=== PATIENT | male | born 1985 | race Caucasian/White ===

== ENCOUNTER 2019-03-19 22:43 | Emergency (ER) | payer OTHER, SELFPAY ==
[2019-03-19 22:44] VITALS: BP 138/77; PULSE 84; RESP 18; TEMP 36.1; O2SAT 95; BMI 30.7
--- NOTE | 2019-03-19 23:09 | ED.RN ---
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 PT BELIEVES IT IS ONLY IF HE WAS DRIVING A VEHICLE.
--- NOTE | 2019-03-19 23:59 | ED.VIS.UPPEX ---
History of Present Illness Chief Complaint: Bite Informant: Patient Mechanism/Context: Work Related - Bit by dog. Patient is police department secretary. Onset: Today - Just prior to arrival. Context: Sudden Onset Quality of Pain: Aching Location: Right mid forearm Current Severity: Mild Maximum Severity: Moderate Worsened by: Moving Relieved by: Remaining still Associated Symptoms: Negative for: Parasthesia, Weakness, Loss of Funtion Narrative: Patient states that he was attempting to arrest a man who had a pitbull mix with him, the patient was not cooperating, as a result of the patient's/officer put his hand in the door of the home to proceed with the arrest, while the home chief learning officer ordered the dog to get him. As result, he was bit on the right forearm. His last tetanus was between 5 and 10 years ago, he was just in the 3 years ago. He is healthy otherwise. He has no neurologic symptoms or loss of function of his right upper extremity. No other injuries. Patient states that before the dog did this he did not appear ill. According to report from the patient significant other who also lives at the house and co-owns the animal, the animal had had shots and was not ill or recently bit by any raccoons or other wild animals. Tetanus Immunization: 5-10 years Past Medical History - Allergies and Home Meds Allergies/Adverse Reactions: Allergies No Known Allergies Allergy (Verified 03/19/19 22:44) Primary Care Physician: Ricardo Weinberg MD [Primary Care Provider] - Past Medical History: None Drugs: None Review of Systems Musculoskeletal: Reports: Extremity Pain Skin: Reports: Abrasions, Wounds Neurological: Denies: Weakness, Parasthesia, Numbness Physical Exam Vital Signs/Narrative: Vital Signs Temp Pulse Resp BP Pulse Ox 03/19/19 22:44 96.9 F L 84 18 138/77 H 95 General: Well nourished, Well developed Head: Normocephalic, Atraumatic Extremeties: Mild tenderness at the area of the abrasion/contusion. Range of motion throughout the right upper extremity, neurovascularly intact distally. All tendon function is intact. Skin: Trauma - 3 linear abrasions on the ulnar aspect of the mid right forearm, with one superficial puncture along 1 of the abrasions. It does not appear to be full-thickness through the skin. There is no active bleeding. Neurological: Alert, Oriented x3, Cranial nerves II-XII grossly intact, Normal Strength, Normal Sensation, Normal Gait Psychological: Normal affect, Normal Mood Diagnostic/Tx/Re-eval - Medical Decision Making This is a very superficial puncture and I do not think he needs antibiotics. His wound was cleansed and dressed with topical antibiotic only which I think is sufficient. We discussed rabies vaccination. I do not think he requires it at this time and that the CDC recommendations would support that, based on the information known. I would advise that someone from the department recheck the dogs status in 10 days, the dog is someone's pet and would be very unlikely to have rabies. The dog is able to be observed and rechecked. The patient is comfortable with avoiding rabies vaccination at this time, however if the dog's status should change, that could be reevaluated. Okay to return to work. ED Disposition - Plan for ED Patient: Disposition: Home or Assisted Living Diagnosis: Dog bite of right forearm without complication Instructions: Dog Bite Referrals: Ricardo Weinberg MD [Primary Care Provider] - [facility] [GROUP OF PHYSICIANS] - As Needed Additional Instructions: Somewhat should check on the status of the dog in 10 days to ensure the dog is not ill or acting unusual. Also would be helpful to verify the dog has had rabies shots.
== END 2019-03-20 00:22 | disposition home or self-care (01) ==
LOC: ED 03-20 00:17
PROVIDERS: Emergency Provider Emergency Medicine; Family Provider Family Medicine; PCP Family Medicine
DX: S51.851A Open bite of right forearm, initial encounter (principal); W54.0XXA Bitten by dog, initial encounter; Y93.89 Activity, other specified; Y92.009 Unspecified place in unspecified non-institutional (private) residence as the place of occurrence of the external cause; Y99.0 Civilian activity done for income or pay
CPT/HCPCS: 99283

== ENCOUNTER 2019-11-08 16:41 | Emergency (ER) | payer OTHER, SELFPAY ==
[2019-11-08 16:42] VITALS: BP 129/73; PULSE 61; RESP 15; TEMP 37; O2SAT 99; BMI 29.9
[2019-11-08 17:28] VITALS: RESP 16
--- NOTE | 2019-11-08 17:50 | ED.VISSUMM ---
- ER Visit Summary Date of Service: 11/08/19 Chief Complaint: Dog bite, left thumb History of Present Illness: The patient is a 34 M who sustained a dog bite to the left thumb. It was the neighbors dog he was petting with a bit his left thumb. The patient and the dog are up-to-date on immunizations. He is having some swelling of the thumb. Denies any other injuries. Physical Examination: Vital signs are reviewed. Left hand exam reveals a 2 cm laceration on the pad of the left thumb. There is also a 0.5 cm laceration on the dorsal part of the left thumb. He has good capillary refill. Sensation is intact distally to the injuries. Good range of motion. Test Results: None Emergency Department Course and Treatment: The patient had a laceration repair. 1 cc lidocaine was used to anesthetize the area locally. 1, 4-0 nylon suture was placed on the dorsal part of the thumb. 3, 4-0 nylon sutures were placed on the pad of the left thumb to approximate each of these wounds. They were not closed tightly to allow any infection to drain if present. I will place the patient on Augmentin at home. He will keep the area clean and dry and will follow up with his PCP. Treatment Plan: [] Disposition: Discharge Impression: Dog bite, left thumb Lacerations, 2 cm and 0.5 cm left thumb Laceration repaired by ED physician This note was generated with Medig[employer] dictation software. It may contain incorrect words, spelling, and punctuation that were not noted in review of the chart prior to signing ED Disposition - Plan for ED Patient: Disposition: Home or Assisted Living Instructions: ED BITE Dog Prescriptions: Amox/Clavulanate Tablet [Augmentin Tablet] 875 mg PO Q12H #20 tab Transmission Status: Pending to [facility]/pharmacy #[id number] Referrals: Ricardo Weinberg MD [Primary Care Provider] -
[2019-11-08 18:04] VITALS: RESP 14
== END 2019-11-08 18:04 | disposition home or self-care (01) ==
PROVIDERS: Emergency Provider Emergency Medicine; PCP Family Medicine
DX: S61.052A Open bite of left thumb without damage to nail, initial encounter (principal); S61.012A Laceration without foreign body of left thumb without damage to nail, initial encounter; W54.0XXA Bitten by dog, initial encounter
CPT/HCPCS: 12001; 99283

== ENCOUNTER 2022-02-19 16:34 | Emergency (ER) | payer OTHER, SELFPAY ==
[2022-02-19 16:34] VITALS: BP 146/69; PULSE 67; RESP 16; TEMP 36.6; O2SAT 100; BMI 31.5
--- NOTE | 2022-02-19 17:27 | EX.ED.UPPERE ---
HPI History of Present Illness HPI Narrative: Left thumb needlestick Chief Complaint: Occup Expose Informant: patient Occured/Mechanism Mechanism/Context: Yes injury Onset/Context/Timing Onset: Today Current Severity: Mild Maximum Severity: Mild Narrative Narrative: 36-year-old healthy male [id number]. Works as a [employer] officer. He picked up a dirty needle from the street he did not realize it had been pushed through the cap and puncture wound to his left palmar aspect of his distal thumb. Tetanus status is up-to-date. He denies any other injuries. This is Worker's Comp. Tetanus Immunization: <5 years Prior similar symptoms: No Recent Illness/Hospitalization: No PFSH PFSH Medical History no medical history no medical history Home Medications amoxicillin 875 mg-potassium clavulanate 125 mg tablet 875 mg PO Q12H #20 tabs 11/08/19 [Rx Last Taken Unknown] multivitamin with minerals 1 ea PO DAILY 11/08/19 [History Last Taken 11/08/19] cephalexin 500 mg capsule 500 mg PO TID 5 days #15 caps 02/19/22 [Rx Last Taken Unknown] Allergy/AdvReac Type Severity Reaction Status Date / Time No Known Allergies Allergy Verified 02/19/22 16:38 Social History Smoking Status: Never smoker ROS ROS ED ROS Narrative No recent illness. Review of Systems ROS Unobtainable: Denies due to encephalopathy Constitutional Constitutional ED: Denies chills Eyes Eyes: Denies blurry vision ENT ENT ED: Denies ear pain Cardiovascular Cardiovascular: Denies chest pain Respiratory/Chest Respiratory/Chest: Denies cough Gastrointestinal Gastrointestinal: Denies abdominal pain Genitourinary Genitourinary ED: Denies dysuria Musculoskeletal Musculoskeletal: Denies back pain Integumentary Denies abscess Neurologic Neurologic: Denies headache(s) Psychiatric Psychiatric: Denies anxiety Endocrine Endocrinology: Denies cold intolerance Hematologic/Lymphatic Hematologic/Lymphatic: Denies easy bleeding Allergic/Immunologic Allergic/Immunologic ED: Denies mouth swelling EXAM Physical Exam Narrative Exam Narrative: Well-appearing 36-year-old male. Vital signs stable afebrile. Exam normal except puncture wound left thumb palmar aspect distal phalanx. Full range of motion. No signs of infection or foreign body. Const Vital Signs: 02/19/22 16:34 Temperature 97.9 F Temperature Source Temporal Pulse Rate 67 Respiratory Rate 16 Blood Pressure 146/69 H Blood Pressure Mean 94 Pulse Ox 100 Oxygen Delivery Method Room Air Positive well nourished and well developed; Negative for obese, cachectic, contractures or unkempt General Appearance ED: well developed; Negative for unkempt, cachectic or contractures Nutritional Appearance: Negative for cachectic or obese HEENT Reports moist mucous membranes normocephalic and atraumatic Eyes PERRL and EOMs intact bilaterally Neck full ROM and No supple General: Negative for tenderness Lymph Lymphatic: Negative for other Chest Wall inspection of chest normal and palpation of chest normal Resp normal respiratory effort and clear to auscultation bilaterally Cardio regular rate, S2 normal heart sound and no murmurs GI non-tender and non-distended Extremity normal to inspection and full ROM Extremity Narrative: Puncture wound palmar thumb distal phalanx. Small drop of blood. Dried. No active bleeding. Full range of motion. No swelling. No redness. No signs of infection. Full range of motion. General Extremety ED: Negative for edema General Extremity: Negative for edema Neuro oriented x3, moves all extremities, no focal motor deficits and no sensory deficits noted Sensorium / Orientation: alert, oriented to person, oriented to place and oriented to time Motor Exam: strength 5/5 throughout Psych mental status grossly normal Appearance: Negative for unkempt Attitude: No agitated Mood & Affect: Negative for depressed or anxious Skin General Skin Exam: Negative for petechiae Lesions: no lesions Rashes: no rashes Trauma: puncture MDM MDM MDM Narrative Medical decision making narrative: Left thumb puncture wound. Worker's Comp. Protocol started for puncture wound. Tetanus is already up-to-date. Discharge Plan Triage Chief Complaint: Occup Expose ED Provider: Handy Ortiz Dx/Rx/DC Orders Clinical Impression: Puncture wound of left thumb, Encounter related to worker's compensation claim Instructions: ED Puncture Wound (General) Prescriptions: New cephalexin 500 mg capsule 500 mg PO TID 5 Days Qty: 15 0RF No Action multivitamin with minerals 1 EACH tablet 1 ea PO DAILY amoxicillin-pot clavulanate 875 MG tablet 875 mg PO Q12H Qty: 20 0RF Primary Care Provider: Ricardo Weinberg Referrals: [facility] [GROUP OF PHYSICIANS] - As soon as possible Ricardo Weinberg MD [Primary Care Provider] - As Needed Activity Restrictions/Additional Instructions: Watch for any signs of infection. Such as redness, warmth, red streaks swelling, fever or pus is seen follow-up. Ice and elevate. Tylenol Motrin for pain. Keflex 1 pill 3 times a day for the next 5 days to try to prevent infection. Follow-up with [facility] for the needlestick blood work. Disposition Disposition: Home, Self Care
[2022-02-19] MEDS: Cephalexin 250 MG Capsule 500 MG PO (17:42)
[2022-02-19 20:04] LABS: HIV - WCH Non-Reactive (Nonreactive); Hepatitis B Surface Antibody Reactive; Hepatitis B Surface Antigen Non-Reactive (Nonreactive); Hepatitis C Antibody Non-Reactive (Nonreactive)
== END 2022-02-19 17:48 | disposition home or self-care (01) ==
PROVIDERS: Emergency Provider Emergency Medicine; PCP Family Medicine; Visit Provider Emergency Medicine
DX: S61.032A Puncture wound without foreign body of left thumb without damage to nail, initial encounter (principal); W46.0XXA Contact with hypodermic needle, initial encounter
CPT/HCPCS: 86703; 86706; 86803; 87340; 99281; 99283